=== PATIENT | female | born 1965 | race Hispanic/Latino ===

== ENCOUNTER → 2018-02-13 | Day surgery (SDC) | payer OTHER ==
[~2018-02-13] MED LIST: FENTANYL CITRATE/PF 100MCG/2 ML INJ ONE; HYOSCYAMINE SULFATE 0.5 MG/ML INJ ONE; MIDAZOLAM HCL 2 MG/2 ML VIAL ONE; ONDANSETRON HCL INJ 2 MG/ML VIAL ONE; PROPOFOL IV EMULSION 10 MG/ML 50 ML VIAL ONE; VITAMIN D PO
[2018-02-13 10:45] VITALS: BP 113/74
--- OUTSIDE RECORDS SUMMARY | 2018-02-20 12:15 | XMS REPORT | Continuity of Care Document ---
Author Author [facility] Interface Address Unknown Phone Unavailable Problems Problem Status Onset Date Classification Date Reported Comments Source Encounter for screening mammogram for malignant neoplasm of breast 07/04/2017 10/07/2017 RITA Joaquin Z12.31 - ENCNTR SCREEN MAMMOGRAM FOR MA Active 06/21/2017 RITA Joaquin Medications Medication Details Route Status Patient Instructions Ordering Provider Order Date Source Allergies, Adverse Reactions, Alerts Substance Category Reaction Severity Reaction type Status Date Reported Comments Source Immunizations Immunization Date Given Site Status Last Updated Comments Source Results Order Name Results Value Reference Range Date Interpretation Comments Source Breast Mammo Scrn ZAY incl CAD MA Breast Mammo Scrn ZAY incl CAD LA BILATERAL DIGITAL SCREENING MAMMOGRAM WITH CAD: 07/01/2017 CLINICAL: /Z12.31 Encounter For Screening Mammogram For Malignant Neoplasm Of Breast. Current study was evaluated with a Computer Aided Detection (CAD) system. COMPARISON:Comparison is made to exams dated: 07/04/2014 mammogram, 08/09/2012 mammogram, 02/18/2011 mammogram, 01/05/2010 mammogram, 08/09/2007 mammogram, and 10/23/2008 mammogram - [facility]. TECHNIQUE: Mammographic views were obtained using digital acquisition. Current study was also evaluated with a Computer Aided Detection (CAD) system. FINDINGS: There are scattered fibroglandular densities in both breasts. Multiple bilateral asymmetries are stable when accounting for differences in positioning and technique. No significant masses, calcifications, or other findings are seen in either breast. There has been no significant interval change. IMPRESSION: BENIGN RECOMMENDATION:There is no mammographic evidence of malignancy. A 1 year screening mammogram is recommended.(07/02/2018) This exam was interpreted at [id number] for Birdie. Professional services are provided by the [facility]. José Miguel Alarcon M.D., cm/michellerad:07/03/2017 08:26:32 Roller Machine Operator(s): Melinda Jurado [facility] letter sent: BI-RADS 1/2 Mammogram BI-RADS: 2 Benign 07/01/2017 - - Read by: Mareclo Gaffney MD Dictated Date/time: 07/03/17 08:26 Electronically Signed by: Marcelo Gaffney MD 07/03/17 08:26 FINAL REPORT RITA Joaquin Digital Mammo Screening Zay MA Digital Mammo Screening Zay MA - DIGITAL MAMMO SCREENING ZAY MA BILATERAL DIGITAL SCREENING MAMMOGRAM WITH CAD: 07/04/2014 CLINICAL: Routine. Current study was evaluated with a Computer Aided Detection (CAD) system. Comparison is made to exams dated: 10/23/2008 mammogram, 01/05/2010 mammogram, 02/18/2011 mammogram and 08/09/2012 mammogram - [facility]. There are scattered fibroglandular densities in both breasts. There is a benign intramammary node in both breasts. No significant masses, calcifications, or other findings are seen in either breast. There has been no significant interval change. IMPRESSION: BENIGN There is no mammographic evidence of malignancy. A 1 year screening mammogram is recommended. Hussain Lipscomb M.D. srp/penrad:07/04/2014 15:01:55 Roller Machine Operator: Nicolasa MOSQUERA(Verónica)([place]), [facility] This exam was dictated and interpreted by [id number] for LATONYA Zaragoza. letter sent: Normal exam Mammogram BI-RADS: 2 Benign 07/04/2014 - - Read by: Hussain Lipscomb MD Dictated Date/time: 07/04/14 15:01 Electronically Signed by: Hussain Lipscomb MD 07/04/14 15:01 FINAL REPORT RITA Joaquin Bone Density-Dual Energy Absorptionmetry Bone Density-Dual Energy Absorptionmetry - Bone Density-Dual Energy Absorptionmetry BONE DENSITY EVALUATION: 07/04/2014 CLINICAL DATA: Post menopausal, clinical risk for osteoporosis and follow-up to previous study. COMPARISON: 02/18/2011 Right hip using Lunar Dual Energy X-Ray Absorptiometry from [facility] with reported normal fracture risk, BMD of 1.124g/cm2, T-score of 0.90, Z-score of 0.60 and 108.0% age-match bone mineralization. 02/18/2011 Left hip using Lunar Dual Energy X-Ray Absorptiometry from [facility] with reported normal fracture risk, BMD of 1.098g/cm2, T-score of 0.70, Z-score of 0.40 and 105.0% age-match bone mineralization. 02/18/2011 AP L1-L4 region of spine using Lunar Dual Energy X-Ray Absorptiometry from [facility] with reported medium fracture risk, BMD of 1.053g/cm2, T-score of -1.10, Z-score of -1.80 and 83.0% age-match bone mineralization. FINDINGS: Bone density evaluation was performed 07/04/2014 on the AP L1-L4 region of spine using Lunar Dual Energy X-Ray Absorptiometry. The BMD average for the exam is 1.002 g/cm2. The T-score is -1.50 and the Z-score is -2.30. These values indicate 78.0% for age-matched controls. Since the previous similar exam of 02/18/2011, there has been a -0.051 or -4.8% change in the BMD value which represents no significant interval change in bone density. This matches the World Health Organization's criteria for osteopenia and places the patient at a medium risk for fracture. An additional bone density evaluation was performed 07/04/2014 on the right femur neck using Lunar Dual Energy X-Ray Absorptiometry. The BMD average for the exam is 1.067 g/cm2. The T-score is 0.20 and the Z-score is 0.20. These values indicate 103.0% for age-matched controls. This matches the World Health Organization's criteria for normal bone density and places the patient within normal limits of fracture risk. An additional bone density evaluation was performed 07/04/2014 on the right hip using Lunar Dual Energy X-Ray Absorptiometry. The BMD average for the exam is 1.092 g/cm2. The T-score is 0.70 and the Z-score is 0.30. These values indicate 104.0% for age-matched controls. Since the previous similar exam of 02/18/2011, there has been a -0.032 or -2.8% change in the BMD value which represents no significant interval change in bone density. This matches the World Health Organization's criteria for normal bone density and places the patient within normal limits of fracture risk. An additional bone density evaluation was performed 07/04/2014 on the left femur neck using Lunar Dual Energy X-Ray Absorptiometry. The BMD average for the exam is 0.994 g/cm2. The T-score is -0.30 and the Z-score is -0.30. These values indicate 96.0% for age-matched controls. This matches the World Health Organization's criteria for normal bone density and places the patient within normal limits of fracture risk. An additional bone density evaluation was performed 07/04/2014 on the left hip using Lunar Dual Energy X-Ray Absorptiometry. The BMD average for the exam is 1.109 g/cm2. The T-score is 0.80 and the Z-score is 0.50. These values indicate 106.0% for age-matched controls. Since the previous similar exam of 02/18/2011, there has been a +0.011 or +1.0% change in the BMD value which represents no significant interval change in bone density. This matches the World Health Organization's criteria for normal bone density and places the patient within normal limits of fracture risk. IMPRESSION: OSTEOPENIA Patient is at medium risk for fracture. Compared to BMD of prior exam, there has been no significant change in bone density. This exam was dictated and interpreted by [id number] for LATONYA Zaragoza. Hussain horan/jeremias:07/04/2014 13:55:01 Roller Machine Operator: Elizabeth Gonzalez 07/04/2014 - - Read by: Hussain Lipscomb MD Dictated Date/time: 07/04/14 13:55 Electronically Signed by: Hussain Lipscomb MD 07/04/14 13:55 FINAL REPORT LATONYA Joaquin Vital Signs Vital Sign Value Date Comments Source Encounters Location Location Details Encounter Type Encounter Number Reason For Visit Attending Provider ADM Date DC Date Status Source [facility] [place] [facility] [id number] Sebastien Campos 07/04/2014 07/05/2014 LATONYA Joaquin [facility] [place] [facility] [id number] Krzysztof Fowler 07/01/2017 07/02/2017 RITA Joaquin Procedures Procedure Code Date Perfomer Comments Source
--- OUTSIDE RECORDS SUMMARY | 2018-02-20 12:15 | XMS REPORT | Summary of Care ---
Author Author [facility] [place] Organization [facility] [place] Address Unknown Phone Unavailable Encounter [facility] Encntr_regina(FIN) [id number] Date(s): 07/01/17 - 07/01/17 [facility] [place] [address] [phone] Encounter Diagnosis Encounter for screening mammogram for malignant neoplasm of breast (Final) - 07/03/17 Discharge Disposition: Home or Self Care Attending Physician: Krzysztof Fowler MD Vital Signs No data available for this section Problem List No data available for this section Allergies, Adverse Reactions, Alerts No data available for this section Medications No data available for this section Results No data available for this section Immunizations No data available for this section Procedures No data available for this section Social History No data available for this section Assessment and Plan No data available for this section
--- OUTSIDE RECORDS SUMMARY | 2018-02-20 12:15 | XMS REPORT | Summary of Care ---
Author Organization Unknown Address Unknown Phone Unavailable Encounter [facility] Encntr_regina([facility]) [id number] Date(s): 07/04/14 - 07/04/14 [facility] [place] [address] [place] [address] [place] [place], [place] [address] [phone] Discharge Disposition: Home Physician Attending: Sebastien Campos MD Vital Signs No data available for [...]
== END | disposition home or self-care (01) ==
LOC: OR 07:16
PROVIDERS: ATTEND Internal Medicine Gastroenterology
DX: Z12.11 Encounter for screening for malignant neoplasm of colon (principal); D12.0 Benign neoplasm of cecum; D12.2 Benign neoplasm of ascending colon; D12.3 Benign neoplasm of transverse colon; D12.4 Benign neoplasm of descending colon; D12.8 Benign neoplasm of rectum; K57.30 Diverticulosis of large intestine without perforation or abscess without bleeding; K64.8 Other hemorrhoids; R21 Rash and other nonspecific skin eruption; Z01.810 Encounter for preprocedural cardiovascular examination; Z68.37 Body mass index [BMI] 37.0-37.9, adult
CPT/HCPCS: 45384; 93005; J1980; J2250; J2405; 45378

== ENCOUNTER → 2019-02-12 | Day surgery (SDC) | payer OTHER ==
[~2019-02-12] MED LIST changes: -HYOSCYAMINE SULFATE 0.5 MG/ML INJ ONE; -ONDANSETRON HCL INJ 2 MG/ML VIAL ONE
[2019-02-12 11:00] VITALS: BP 119/76
== END | disposition home or self-care (01) ==
LOC: OR 06:21
PROVIDERS: ATTEND Internal Medicine Gastroenterology
DX: D12.3 Benign neoplasm of transverse colon (principal); D12.4 Benign neoplasm of descending colon; K57.30 Diverticulosis of large intestine without perforation or abscess without bleeding; K64.8 Other hemorrhoids; E55.9 Vitamin D deficiency, unspecified; Z01.810 Encounter for preprocedural cardiovascular examination; Z68.39 Body mass index [BMI] 39.0-39.9, adult
CPT/HCPCS: 45384; 45385; 93005; J2250; J2704; J3010; 45378